=== PATIENT | female | born 1985 | race Caucasian/White ===

== ENCOUNTER 2018-01-27 12:11 | Inpatient (IN) | payer BC, OTHER ==
[2018-01-27] MEDS ORDERED: Butorphanol Tartrate 1 MG/ML VIAL SLOW IVP PRN (12:43)
[2018-01-27] MEDS ORDERED: Promethazine HCl 25 MG/ML VIAL IM PRN ×2 (12:43→20:16)
[2018-01-27] MEDS ORDERED: Carboprost 250 MCG/ML AMP IM PRN (12:43)
[2018-01-27] MEDS ORDERED: NS / Oxytocin 40 units/1000ml 1,000 ML IV PRN (12:43)
[2018-01-27] MEDS ORDERED: Misoprostol 200 MCG TAB PR PRN (12:43)
[2018-01-27] MEDS ORDERED: Methylergonovine 0.2 MG/ML VIAL IM PRN (12:43)
[2018-01-27] MEDS ORDERED: Ondansetron HCl/PF 4 MG/2 ML Vial IVP PRN ×2 (12:43→20:16)
[2018-01-27] MEDS ORDERED: Ibuprofen 800 MG TAB PO PRN (12:43)
[2018-01-27] MEDS ORDERED: Diphenoxylate HCl/Atropine Tablet PO PRN (12:43)
[2018-01-27] MEDS ORDERED: HYDROcodone/Acetaminophen 5/325 mg Tablet PO PRN (12:43)
[2018-01-27] MEDS ORDERED: Lidocaine 1% (PF) 30 ML VIAL SC PRN (12:43)
[2018-01-27] MEDS ORDERED: Acetaminophen 500 MG TAB PO PRN (12:43)
[2018-01-27] MEDS ORDERED: NS w/ Oxytocin 10 units 500 ML IV SCH (12:45)
[2018-01-27] MEDS ORDERED: Penicillin G Potassium 5 MILL.UNITS in Sodium Chloride 0.9% 100 ML IVPB SCH (12:45)
[2018-01-27] MEDS: Misoprostol 100 MCG TAB VAG SCH ×2 (13:29→16:25)
[2018-01-27] MEDS: Lactated Ringer's 1,000 ML IV SCH ×3 (13:30→23:10)
[2018-01-27 13:56] LABS: Hemoglobin 12.5 g/dL (12.0-16.0); Mean Corpuscular HGB CONC 35.1 g/dL (32.0-36.0); Mean Corpuscular Hemoglobin 31.3 pg (27.0-31.0); Mean Corpuscular Volume 89.1 fL (78.0-98.0); Mean Platelet Volume 7.8 fL (7.4-10.4); Platelet Count 352 thou/uL (130-400); RBC Distribution Width 12.4 % (11.5-14.5); Red Blood Cell (RBC) Count 3.98 mill/uL (4.20-5.40); White Blood Cell (WBC) Count 12.1 thou/uL (4.8-10.8)
[2018-01-27 14:38] LABS: Syphilis Antibody Nonreactive (Nonreactive)
[2018-01-27 14:50] LABS: HBSAg Index 0.17 S/CO (0-0.99); Hep B Surf Ag Non-Reactive S/CO (NonReactive)
[2018-01-27 16:01] VITALS: BMI 46.3
[2018-01-27] MEDS ORDERED: Penicillin G Potassium 5 MILL.UNITS VIAL ONE (16:13)
--- NOTE | 2018-01-27 19:30 | PDOC.LDHP ---
Labor and Delivery H&P Chief complaint: scheduled induction HPI: 32yo at 40w0d by LMP for IOL due to obesity. No complaints. Current gestational age (weeks): 40 Due date: 01/27/18 Dating criteria: last menstrual period Grav: 2 Para: 1 Current complications: none Abnormal US findings: No Past Medical History: obesity, hx of frequent skin infections Current medications: pre-mayte vitamins, other (clindamycin 300 tid for labial abscess) Previous surgical history: none Allergies/Adverse Reactions: Allergies Allergy/AdvReac Type Severity Reaction Status Date / Time No Known Allergies Allergy Verified 01/27/18 14:21 Social history: none - Physical Exam Vital signs reviewed and normal: yes General: NAD Heart: RRR Lungs: CTAB Abdomen: gravid Extremeties: no edema FHT: category 1 Luana contractions every: 5min - Vaginal Exam cm dilated: 1 Effacement: 75% Station: -3 - OB Labs Blood type: O RH: positive Antibody Screen: negative HIV: negative RPR: negative HEPSAg: negative 1 hour GCT: negative GBS: positive Urine drug screen: negative Rubella: immune - Assessment L&D Assessment: medically indicated induction - Plan Plan: admit to L&D, cervical ripening, labor augmentation if indicated, GBS antibiotic prophylaxis, informed consent obtained, anesthesia consult for pain management
[2018-01-27] MEDS ORDERED: Bupivacaine 0.5% 20 ML, fentaNYL Citrate/PF 400 MCG in Sodium Chloride 0.9% 72 ML EPIDURAL SCH (19:45)
[2018-01-27] MEDS ORDERED: DISCONTINUE ALL PREVIOUS NARCOTICS FS SCH (19:45)
[2018-01-27] MEDS ORDERED: ePHEDrine/0.9% NaCl/PF SYRINGE 50 mg/10 ml SLOW IVP PRN (20:16)
[2018-01-27] MEDS ORDERED: Acetaminophen 325 MG TAB PO PRN (20:16)
[2018-01-27] MEDS ORDERED: diphenhydrAMINE 50 MG/ML VIAL IVP PRN (20:16)
[2018-01-27] MEDS ORDERED: Lactated Ringer's 500 ML IV PRN (20:16)
[2018-01-27] MEDS ORDERED: Naloxone HCl 0.4 mg/ml Vial IVP PRN ×2 (20:16)
[2018-01-27] MEDS ORDERED: Eucerin (Mineral Oil/Petrolatum,White) 30 gm Jar TOP PRN (20:16)
[2018-01-27] MEDS ORDERED: Communication Order-Pharmacy FS SCH (20:30)
[2018-01-27] MEDS ORDERED: fentaNYL Citrate/PF 400 MCG, Bupivacaine 0.5% 20 ML in Sodium Chloride 0.9% 72 ML EPIDURAL SCH (20:30)
[2018-01-27] MEDS: Penicillin G 2.5 MILL.units 2.5 MILL.UNITS in Premix Bag 1 BAG IVPB SCH (21:12)
[2018-01-28] MEDS ORDERED: Terbutaline Sulfate 1 MG/ML VIAL ONE (00:58)
[2018-01-28] MEDS ORDERED: Bicitra 30 ML UDCUP ONE (01:31)
[2018-01-28] MEDS ORDERED: CEFAZOLIN/Water 2 GM/20 ML SYRINGE ONE (01:31)
[2018-01-28] MEDS ORDERED: Fentanyl 100 MCG/2 ML VIAL ONE ×2 (01:34→02:42)
[2018-01-28] MEDS ORDERED: Oxytocin 10 UNITS/ML VIAL ONE (01:35)
[2018-01-28] MEDS ORDERED: Lidocaine 1% PF 5 ML VIAL ONE (01:35)
[2018-01-28] MEDS ORDERED: Ondansetron HCl/PF 4 MG/2 ML Vial ONE (01:35)
[2018-01-28] MEDS ORDERED: Ketorolac Tromethamine 30 MG/ML VIAL ONE (01:35)
--- NOTE | 2018-01-28 01:36 | PDOC.LDPN ---
Labor & Delivery Progress Note - Subjective Subjective: comfortable - Objective Vital signs reviewed and normal: yes General: NAD Uterine fundus: non tender Dilation: 5 Effacement: 75% Station: -1 FHT: category 2, variable decelerations, late decelerations, absent or minimal variables (late decel present with > 50% contractions despite resuscitation) Resuscitative measures: amniofusion, maternal oxygen, maternal IV fluids, maternal position change Plan: other (No improvement in late decels with interventions, deep variables with trailing late features and minimal variability s/p terb, amnioinfusion, for last hour, remote from delivery, dispo for primary CS for distress. R /B/A d/w pt including bleeding transfusion infection damage to surrounding structures trauma. Pt understands and wishes to proceed. )
[2018-01-28] MEDS ORDERED: Lidocaine 2% PF Inj 2 ML VIAL ONE ×3 (01:38→21:00)
--- NOTE | 2018-01-28 01:38 | PDOC.OPDEL ---
OB Operative/Delivery Note Delivery Dr/Surgeon: Rocio Assist: Jesus Pre-Delivery Diagnosis: non-reassuring tracing Procedure/Post Delivery Dx: primary low transverse CS Weeks gestation: 40 Anesthesia: epidural - Additional Findings/Plan Placenta delivered: spontaneous findings: low transverse hysterotomy without extension, normal uterus, normal tubes, normal ovaries Post delivery plan: routine recovery
[2018-01-28] MEDS ORDERED: Bicitra 30 ML UDCUP PO SCH (01:45)
[2018-01-28] MEDS ORDERED: CEFAZOLIN/Water 2 GM/20 ML SYRINGE SLOW IVP SCH (01:45)
[2018-01-28] MEDS ORDERED: Morphine PF 1 MG/ML SYR ONE ×2 (02:07→02:08)
[2018-01-28] MEDS ORDERED: Bupivacaine/Epinephrine 0.5% 10 ML VIAL ONE (02:26)
[2018-01-28] MEDS ORDERED: Bupivacaine PF 0.5% 30 ML VIAL ONE (02:26)
[2018-01-28] MEDS ORDERED: diphenhydrAMINE 50 MG/ML VIAL IVP PRN (02:34)
[2018-01-28] MEDS ORDERED: Promethazine HCl 25 MG/ML VIAL IM PRN (02:34)
[2018-01-28] MEDS ORDERED: Eucerin (Mineral Oil/Petrolatum,White) 30 gm Jar TOP PRN (02:34)
[2018-01-28] MEDS ORDERED: Naloxone HCl 0.4 mg/ml Vial IV PRN (02:34)
[2018-01-28] MEDS ORDERED: Naloxone HCl 0.4 mg/ml Vial IVP PRN ×2 (02:34)
[2018-01-28] MEDS ORDERED: Ketorolac Tromethamine 30 MG/ML VIAL IVP PRN (02:34)
[2018-01-28] MEDS ORDERED: Meperidine HCl/PF 25 MG/ML VIAL SLOW IVP PRN (02:34)
[2018-01-28] MEDS ORDERED: Ondansetron HCl/PF 4 MG/2 ML Vial IVP PRN ×2 (02:34)
[2018-01-28] MEDS ORDERED: HYDROmorphone 2 MG/ML VIAL SLOW IVP PRN (02:34)
[2018-01-28] MEDS ORDERED: Promethazine HCl 25 MG SUPP PR PRN (02:34)
[2018-01-28] MEDS ORDERED: Communication Order-Pharmacy FS SCH (02:45)
[2018-01-28] MEDS ORDERED: Ketorolac Tromethamine 30 MG/ML VIAL IVP SCH (02:45)
[2018-01-28 02:47] LABS: Actual Bicarbonate (HCO3a) 31.7 mEq/L (22-28); Analyzer IN Cardio ER; Base Excess (BEa) -7.2 mEq/L (-2.0 to +3.0)
[2018-01-28] MEDS: Lactated Ringer's 1,000 ML IV SCH (06:15)
[2018-01-28] MEDS: Penicillin G 2.5 MILL.units 2.5 MILL.UNITS in Premix Bag 1 BAG IVPB SCH ×2 (11:04→11:05)
[2018-01-28] MEDS: Misoprostol 100 MCG TAB VAG SCH ×2 (11:05→11:06)
[2018-01-28] MEDS ORDERED: Adacel (T-DAP) 0.5 ML VIAL IM ONE (16:05)
[2018-01-28] MEDS ORDERED: Lanolin Ointment 7 GM TUBE TOP PRN (16:05)
[2018-01-28] MEDS ORDERED: Acetaminophen 325 MG TAB PO PRN (16:05)
[2018-01-28] MEDS ORDERED: Simethicone Chewable 80 MG TAB PO PRN (16:05)
[2018-01-28] MEDS ORDERED: HYDROcodone/Acetaminophen 5/325 mg Tablet PO PRN (16:05)
[2018-01-28] MEDS ORDERED: diphenhydrAMINE 25 MG CAP PO PRN (16:05)
[2018-01-28] MEDS ORDERED: Bisacodyl 10 MG SUPP PR PRN (16:05)
[2018-01-28] MEDS: HYDROcodone/Acetaminophen 5/325 mg Tablet PO PRN (19:23)
[2018-01-28] MEDS: Docusate Calcium (SURFAK) 240 MG CAP PO SCH (20:54)
[2018-01-28] MEDS ORDERED: Bupivacaine 0.25% HCL 30 ML VIAL ONE (21:00)
[2018-01-28] MEDS: Ibuprofen 800 MG TAB PO SCH (22:43)
[2018-01-29] MEDS: HYDROcodone/Acetaminophen 5/325 mg Tablet PO PRN ×4 (00:17→15:46)
[2018-01-29 05:26] LABS: Hemoglobin 10.3 g/dL (12.0-16.0); Mean Corpuscular HGB CONC 34.5 g/dL (32.0-36.0); Mean Corpuscular Hemoglobin 31.2 pg (27.0-31.0); Mean Corpuscular Volume 90.5 fL (78.0-98.0); Mean Platelet Volume 6.7 fL (7.4-10.4); Platelet Count 283 thou/uL (130-400); RBC Distribution Width 12.5 % (11.5-14.5); Red Blood Cell (RBC) Count 3.29 mill/uL (4.20-5.40)
[2018-01-29] MEDS: Ibuprofen 800 MG TAB PO SCH ×2 (05:34→14:00)
--- NOTE | 2018-01-29 08:28 | PDOC.PP ---
Post Progress Note Post Day #: 1 Subjective: Ambulating without pain, tolerating regular diet, min lochia, baby feeding well. Pt request late afternoon DC when she will be approx 36hrs post op from CS. Her is in the and will be leaving and she wants to be home with him and the baby tonight. PO intake tolerated: yes Flatus: yes Ambulation: yes Vital Signs (12 hours) Temp Pulse Resp BP 01/29/18 07:57 98.4 F 77 20 110/59 L 01/29/18 03:40 98.4 F 70 18 99/63 01/28/18 23:55 98.2 F 84 18 99/52 L Weight Weight 270 lb - Physical Examination General: NAD Respiratory: non-labored breathing Abdominal: no distention Fundus firm & at: below umb Extremities: negative homans (B) Skin: CS incision dry & intact, no rash Neurological: no gross focal deficits Psychiatric: A&Ox3, normal affect Result Diagrams: 01/29/18 05:11 Additional Labs: Post Labs Blood Type O POSITIVE 01/27/18 13:35 Hep Bs Antigen Non-Reactive S/CO (NonReactive) 01/27/18 13:35 (1) delivery delivered Code(s): O82 - ENCOUNTER FOR DELIVERY WITHOUT INDICATION Status: Acute - Assessment/Plan POD1. approx 36hrs PP later this afternoon when she request early discharge. Pt aware that post op recovery usually extends through 2 nights post however she met her post op goals on POD0, has stable and normal vital signs and request DC. Will discuss with nursery. If vitals signs remain normal through this afternoon and baby DC will DC home mom. Strict ED warnings given.
[2018-01-29] MEDS ORDERED: Prenatal Vitamin 1 TAB PO SCH (09:00)
[2018-01-29] MEDS: Docusate Calcium (SURFAK) 240 MG CAP PO SCH (09:56)
[2018-01-29 11:50] VITALS: BP 104/56; TEMP 98.2
--- NOTE | 2018-01-30 08:39 | OP ---
DATE OF OPERATION: 01/28/2018 PREOPERATIVE DIAGNOSES: 1. Intrauterine at 40 weeks and 1 day. 2. Nonreassuring heart tones. POSTOPERATIVE DIAGNOSES: 1. Intrauterine at 40 weeks and 1 day. 2. Nonreassuring heart tones. PROCEDURE: Primary low transverse section via Pfannenstiel skin incision. ANESTHESIA: Epidural. ATTENDING SURGEON: Valerie Chan M.D. SOFTWARE ENGINEERING SPECIALIST: Dr. Leonides Lee ESTIMATED BLOOD LOSS: 700 mL. QUANTITATIVE BLOOD LOSS: Pending. COMPLICATIONS: None. DRAINS: Hawk catheter. PATHOLOGY: Placenta. FINDINGS: A male infant in cephalic presentation, meconium stained amniotic fluid, Apgars of 8 and 9 , weight 7 pounds 4 ounces. Cord gas; cord pH is 7.25, base excess negative 7.2, pCO2 was 48. OPERATIVE INDICATIONS: A 32-year-old, G2, P1, presented at 40 weeks for induction of labor. She und erwent 1 dose of Cytotec and subsequently had regular painful contractions and progressed to 5 cm. S he received an epidural and following this started having a recurrent nonreassuring pattern sue t was unresponsive to resuscitative measures for approximately 2 hours. Disposition was for primary at that time. OPERATIVE TECHNIQUE: The patient was taken to the operating room where epidural anesthesia was found to be adequate. The patient was prepped and draped in a sterile fashion in the dorsal supine positi on with a leftward tilt. After ensuring adequacy of anesthesia, a Pfannenstiel skin incision was mad e and carried down to the underlying subcutaneous tissue with the knife. The fascia was nicked in th e midline with the knife and carried laterally with the Carranza scissors. The superior aspect of the fa scia was tented with 2 Kochers and dissected off the rectus with the Carranza scissors. The inferior asp ect of the fascia was tented with 2 Kochers and dissected off the rectus with the Mayos down to the p ubic symphysis. The peritoneum was bluntly entered into and manually retracted and the Girish O retr actor was placed. A bladder flap was created with the Metzenbaum and the lower uterine segment was i ncised in a transverse fashion and extended with the Crow maneuver. The infant's head was brought to the hysterotomy and delivered atraumatically followed by the body. Delayed cord clamping was perfor med as the infant was vigorous. The infant's cord was clamped and handed to awaiting sophie team . Cord gas and cord blood was obtained and the placenta was allowed to spontaneously deliver. The u terus was exteriorized, cleared of all clots and debris and the posterior cul-de-sac was lapped out. The uterus was placed back into the abdomen and the hysterotomy was repaired with #1 Monocryl in a r unning locking fashion. A second imbricating layer of #1 Monocryl was placed. Hemostasis was noted to be excellent. Copious irrigation of the pelvis and pericolic gutters was performed and suctioned. The Girish O retractor was removed and the rectus muscles were examined and noted to be hemostatic. The fascia was reapproximated with an 0 PDS x2 sutures with excellent reapproximation. The subcuta neous tissue was irrigated and cauterized of any bleeders and reapproximated with a 2-0 plain gut in a running fashion x2 layers. The skin was closed with a 4-0 Monocryl in a subcuticular fashion and D ermabond was applied as well as a pressure dressing. The patient tolerated procedure well. Sponge, lap, needle counts are correct x2. The patient was taken to recovery room in stable condition. The patient received Ancef 2 grams prior to the procedure.
--- NOTE | 2018-01-31 03:26 | OP ---
DATE OF PROCEDURE: 01/28/2018 The patient is a 32-year-old who underwent primary for nonreassuring heart tones. PRIMARY SURGEON: Valerie Chan MD. Please see her operative report for complete details. I serv ed as her assistant maintenance manager.
== END 2018-01-29 17:00 | disposition home or self-care (01) | DRG 766 ==
LOC: L&D 12:11 → 3SW 01-28 05:13
PROVIDERS: ADMIT Student in an Organized Health Care Education/Training Program; ATTEND Student in an Organized Health Care Education/Training Program
PROC: 10D00Z1 Extraction of Products of Conception, Low, Open Approach (ICD-10-PCS; principal; 2018-01-27)
PROC: 3E033VJ Introduction of Other Hormone into Peripheral Vein, Percutaneous Approach (ICD-10-PCS; 2018-01-27)
DX: O48.0 Post-term pregnancy (principal); Z3A.40 40 weeks gestation of pregnancy; Z37.0 Single live birth; O77.0 Labor and delivery complicated by meconium in amniotic fluid; O76 Abnormality in fetal heart rate and rhythm complicating labor and delivery
CPT/HCPCS: 36415; 51702; 82805; 85027; 86780; 86850; 86900; 86901; 87340; 88307; J1885; J2001; J2274; J2405; J2540; J2590; J3010; J3105; J3490; J7050; S0020